=== PATIENT | male | born 1965 | race Caucasian/White ===

== ENCOUNTER 2017-01-04 15:02 | Inpatient (IN) | payer MEDICARE, OTHER ==
[~2017-01-04] VITALS: Ht 180.3 cm; Wt 190.0 kg
[2017-01-04 16:02] LABS: Basophils # (auto) 0 uL; Basophils % (auto) 0.4 % (0.0-2.0); Eosinophils # (auto) 0 uL; Eosinophils % (auto) 0.2 % (0.0-7.0); Hematocrit 39.8 % (41.0-53.0); Hemoglobin 12.8 g/dL (13.5-17.5); Lymphocytes # (auto) 2.5 uL; Mean Corpuscular Hemoglobin 32.2 pg (28.0-32.0); Mean Corpuscular Hgb Conc. 32.3 g/dL (32.0-36.0); Mean Corpuscular Volume 99.9 fL (80.0-100.0); Mean Platelet Volume 7.5 fL (7.4-10.4); Monocytes # (auto) 0.5 uL; Neutrophils # (auto) 3.8 uL; Neutrophils % (auto) 55.4 % (37.0-80.0); Platelet Count (auto) 174 10^3/uL (140-450); Red Cell Distribution Width 16.1 % (11.6-16.0); White Blood Cell 6.8 10^3/uL (4.4-10.8)
[2017-01-04 16:13] LABS: Albumin 2.5 g/dL (3.4-5.0); Bilirubin, Total 0.4 mg/dL (0.2-1.0); Potassium 4.3 mmol/L (3.5-5.1); Total Protein 6.5 g/dL (6.4-8.2)
[2017-01-04] MEDS ORDERED: CEFTRIAXONE SODIUM 2 GM in D5W 5% 50 ML IV ONE (18:30)
[2017-01-04] MEDS ORDERED: MORPHINE SULF INJ 2 MG/ML SYRINGE 1ML IV ONE (18:30)
[2017-01-04] MEDS ORDERED: PIPERACILLIN-TAZOB 3.375GM 100 ML IV ONE (18:45)
[2017-01-04] MEDS ORDERED: CLINDAMYCIN 600MG IV 50 ML IV ONE (18:45)
[2017-01-04] MEDS ORDERED: ALBUTEROL SULF 2.5 MG/0.5ML(0.5%) NEB SOLN NEB ONE (18:45)
[2017-01-04] MEDS ORDERED: MORPHINE SULFATE 4 MG/ML SYRG IV ONE (18:45)
[2017-01-04] MEDS ORDERED: ONDANSETRON HCL 4 MG/2 ML VIAL IV ONE (18:45)
[2017-01-04] MEDS ORDERED: IPRATROPIUM BROM 0.5 MG/2.5ML INH SOL NEB ONE (18:45)
[2017-01-04] MEDS ORDERED: ceFAZolin 1GM/50ML D5W 100 ML IV ONE (19:00)
[2017-01-04 20:57] LABS: B-Type Natriuretic Peptide 7.35 pg/mL (0-100)
[2017-01-04 20:58] LABS: Temperature: 23.5 C (20.0-25.0)
[2017-01-04] MEDS ORDERED: MORPHINE SULF INJ 2 MG/ML SYRINGE 1ML IV PRN (21:30)
[2017-01-04] MEDS ORDERED: ONDANSETRON HCL 4 MG/2 ML VIAL IV PRN (21:30)
[2017-01-04] MEDS ORDERED: TEMAZEPAM 15 MG CAP PO PRN (21:30)
[2017-01-04] MEDS ORDERED: NITROGLYCERIN 0.4 MG SL TAB SL PRN (21:30)
[2017-01-04] MEDS ORDERED: HYDROcodone-ACET 5/325MG TAB PO PRN (21:30)
[2017-01-04] MEDS ORDERED: FURO40TA4 PO (21:31)
[2017-01-04] MEDS ORDERED: DIVA500T7 PO (21:31)
[2017-01-04] MEDS ORDERED: TRAZ100T2 PO (21:31)
[2017-01-04] MEDS ORDERED: GABA300C8 PO (21:31)
[2017-01-04] MEDS ORDERED: OLAN10TA29 PO (21:31)
[2017-01-04] MEDS ORDERED: TOPI200T43 PO (21:31)
[2017-01-04] MEDS ORDERED: TRAZODONE PO SCH (22:00)
[2017-01-04] MEDS: SODIUM CHLOR 0.9% PF (SALINE LOCK) 10ML VIAL IV SCH (22:00)
[2017-01-04] MEDS ORDERED: TOPIRAMATE 200 MG PO SCH (22:00)
[2017-01-04] MEDS: GABAPENTIN 300 MG CAP PO SCH (22:13)
[2017-01-04] MEDS: CLINDAMYCIN 900MG IV 50 ML IV SCH (22:54)
[2017-01-05] VITALS (8 sets, daily range): BP systolic 104–127; BP diastolic 54–70
[2017-01-05] MEDS: MORPHINE SULF INJ 2 MG/ML SYRINGE 1ML IV PRN ×4 (02:00→20:26)
[2017-01-05] MEDS: CLINDAMYCIN 900MG IV 50 ML IV SCH ×3 (05:00→22:15)
[2017-01-05] MEDS: GABAPENTIN 300 MG CAP PO SCH ×3 (05:00→22:15)
[2017-01-05] MEDS: SODIUM CHLOR 0.9% PF (SALINE LOCK) 10ML VIAL IV SCH ×3 (05:00→22:15)
[2017-01-05 06:17] LABS: Basophils # (auto) 0.1 uL; Basophils % (auto) 1.5 % (0.0-2.0); Eosinophils # (auto) 0 uL; Eosinophils % (auto) 0.5 % (0.0-7.0); Hematocrit 38.2 % (41.0-53.0); Hemoglobin 12.5 g/dL (13.5-17.5); Lymphocytes # (auto) 2.3 uL; Lymphocytes % (auto) 43.1 % (10.0-50.0); Mean Corpuscular Hemoglobin 31.8 pg (28.0-32.0); Mean Corpuscular Hgb Conc. 32.8 g/dL (32.0-36.0); Mean Platelet Volume 7.8 fL (7.4-10.4); Monocytes # (auto) 0.4 uL; Monocytes % (auto) 7.7 % (0.0-12.0); Neutrophils # (auto) 2.5 uL; Neutrophils % (auto) 47.2 % (37.0-80.0); Platelet Count (auto) 298 10^3/uL (140-450); Red Cell Distribution Width 15.7 % (11.6-16.0); White Blood Cell 5.4 10^3/uL (4.4-10.8)
[2017-01-05 06:35] LABS: Albumin 2.7 g/dL (3.4-5.0); Bilirubin, Total 0.5 mg/dL (0.2-1.0); Calcium 8.3 mg/dL (8.5-10.1); Total Protein 6.3 g/dL (6.4-8.2)
[2017-01-05] MEDS: OLANZapine 5 MG TAB PO SCH (09:48)
[2017-01-05] MEDS: TOPIRAMATE 100 MG TAB PO SCH ×2 (09:49→22:15)
[2017-01-05] MEDS ORDERED: PATIENTS OWN MEDICATION (Olanzapine 10 MG) PO SCH (10:00)
[2017-01-05] MEDS ORDERED: FUROSEMIDE 40 MG TAB PO SCH (10:00)
[2017-01-05] MEDS ORDERED: DIVALPROEX SODIUM 500 MG PO SCH (10:00)
[2017-01-05] MEDS ORDERED: POTASSIUM CHL 20 Meq TABLET PO ONE (12:30)
[2017-01-05] MEDS ORDERED: FUROSEMIDE 40 MG/4 ML VIAL IV ONE (12:30)
[2017-01-05 15:50] LABS: Urine RBC None Seen /hpf (0 - 3)
[2017-01-05 16:19] LABS: Urine Bilirubin Negative (Negative); Urine Blood Negative /uL (Negative); Urine Glucose Normal (Normal); Urine Ketone Negative (Negative); Urine Nitrite Negative (Negative); Urine Urobilinogen Normal (Negative)
[2017-01-05 16:22] LABS: Urine Color Straw (Yellow)
[2017-01-05] MEDS: ALBUTEROL SULF 2.5 MG/0.5ML(0.5%) NEB SOLN NEB SCH (18:39)
[2017-01-05] MEDS: IPRATROPIUM BROM 0.5 MG/2.5ML INH SOL NEB SCH (18:39)
[2017-01-05] MEDS: traZODone HCL 50 MG TAB PO SCH (22:15)
[2017-01-06] MEDS: ALBUTEROL SULF 2.5 MG/0.5ML(0.5%) NEB SOLN NEB SCH ×4 (01:10→18:00)
[2017-01-06] MEDS: IPRATROPIUM BROM 0.5 MG/2.5ML INH SOL NEB SCH ×4 (01:10→18:00)
[2017-01-06 05:12] VITALS: BP 119/51
[2017-01-06] MEDS: MORPHINE SULF INJ 2 MG/ML SYRINGE 1ML IV PRN ×5 (05:21→22:00)
[2017-01-06] MEDS: GABAPENTIN 300 MG CAP PO SCH ×3 (05:21→21:59)
[2017-01-06] MEDS: SODIUM CHLOR 0.9% PF (SALINE LOCK) 10ML VIAL IV SCH ×3 (05:21→21:59)
[2017-01-06] MEDS: CLINDAMYCIN 900MG IV 50 ML IV SCH ×3 (05:21→21:59)
[2017-01-06 06:06] LABS: Basophils # (auto) 0.1 uL; Basophils % (auto) 1.2 % (0.0-2.0); Eosinophils # (auto) 0 uL; Eosinophils % (auto) 0.6 % (0.0-7.0); Hematocrit 40.2 % (41.0-53.0); Hemoglobin 13.1 g/dL (13.5-17.5); Lymphocytes # (auto) 2.4 uL; Lymphocytes % (auto) 40.7 % (10.0-50.0); Mean Corpuscular Hemoglobin 31.8 pg (28.0-32.0); Mean Corpuscular Hgb Conc. 32.7 g/dL (32.0-36.0); Mean Corpuscular Volume 97.1 fL (80.0-100.0); Mean Platelet Volume 7.6 fL (7.4-10.4); Monocytes # (auto) 0.4 uL; Monocytes % (auto) 7.1 % (0.0-12.0); Neutrophils # (auto) 2.9 uL; Neutrophils % (auto) 50.4 % (37.0-80.0); Platelet Count (auto) 289 10^3/uL (140-450); Red Cell Distribution Width 15.3 % (11.6-16.0); White Blood Cell 5.8 10^3/uL (4.4-10.8)
[2017-01-06 06:23] LABS: Calcium 8.3 mg/dL (8.5-10.1)
[2017-01-06 06:25] LABS: BUN/Creatinine Ratio 16.8
[2017-01-06 08:00] VITALS: BP 127/73
[2017-01-06 09:00] VITALS: BP 127/73
[2017-01-06] MEDS: FUROSEMIDE 40 MG/4 ML VIAL IV SCH (09:55)
[2017-01-06] MEDS: TOPIRAMATE 100 MG TAB PO SCH ×2 (09:56→21:59)
[2017-01-06] MEDS: POTASSIUM CHL 20 Meq TABLET PO SCH (09:56)
[2017-01-06] MEDS: OLANZapine 5 MG TAB PO SCH (09:57)
[2017-01-06 13:00] VITALS: BP 130/65
[2017-01-06] MEDS ORDERED: FUROSEMIDE 40 MG/4 ML VIAL IV ONE (13:45)
[2017-01-06] MEDS ORDERED: POTASSIUM CHL 20 Meq TABLET PO ONE (13:45)
[2017-01-06 17:30] VITALS: BP 110/62
[2017-01-06] MEDS ORDERED: LEVOFLOXACIN 500MG 100 ML IV ONE (19:45)
[2017-01-06 21:30] VITALS: BP 121/78
[2017-01-06] MEDS: traZODone HCL 50 MG TAB PO SCH (21:59)
[2017-01-07] MEDS: MORPHINE SULF INJ 2 MG/ML SYRINGE 1ML IV PRN ×5 (02:19→20:04)
[2017-01-07 05:27] VITALS: BP 120/65
[2017-01-07] MEDS: GABAPENTIN 300 MG CAP PO SCH ×3 (05:49→21:33)
[2017-01-07] MEDS: SODIUM CHLOR 0.9% PF (SALINE LOCK) 10ML VIAL IV SCH ×3 (05:49→21:35)
[2017-01-07] MEDS: CLINDAMYCIN 900MG IV 50 ML IV SCH ×3 (05:49→21:33)
[2017-01-07] MEDS: ALBUTEROL SULF 2.5 MG/0.5ML(0.5%) NEB SOLN NEB SCH ×4 (06:00→18:37)
[2017-01-07] MEDS: IPRATROPIUM BROM 0.5 MG/2.5ML INH SOL NEB SCH ×4 (06:00→18:37)
[2017-01-07 06:08] LABS: BUN/Creatinine Ratio 18.2; Calcium 8.3 mg/dL (8.5-10.1); Potassium 3.6 mmol/L (3.5-5.1)
[2017-01-07 08:00] VITALS: BP 121/68
[2017-01-07 09:00] VITALS: BP 121/68
[2017-01-07] MEDS ORDERED: LEVOFLOXACIN 500MG 100 ML IV SCH (10:00)
[2017-01-07] MEDS: OLANZapine 5 MG TAB PO SCH (10:11)
[2017-01-07] MEDS: POTASSIUM CHL 20 Meq TABLET PO SCH (10:11)
[2017-01-07] MEDS: TOPIRAMATE 100 MG TAB PO SCH ×2 (10:12→21:33)
[2017-01-07] MEDS: FUROSEMIDE 40 MG/4 ML VIAL IV SCH (10:12)
[2017-01-07] MEDS ORDERED: POTASSIUM CHL 20 Meq TABLET PO ONE (12:00)
[2017-01-07] MEDS ORDERED: FUROSEMIDE 40 MG/4 ML VIAL IV ONE (12:00)
[2017-01-07 13:00] VITALS: BP 121/74
[2017-01-07 16:26] VITALS: BP 112/68
[2017-01-07] MEDS: traZODone HCL 50 MG TAB PO SCH (21:33)
[2017-01-07 21:41] VITALS: BP 96/60
[2017-01-08] MEDS: MORPHINE SULF INJ 2 MG/ML SYRINGE 1ML IV PRN ×3 (00:20→08:37)
[2017-01-08 04:47] VITALS: BP 107/65
[2017-01-08] MEDS: CLINDAMYCIN 900MG IV 50 ML IV SCH (05:32)
[2017-01-08] MEDS: SODIUM CHLOR 0.9% PF (SALINE LOCK) 10ML VIAL IV SCH (05:32)
[2017-01-08] MEDS: GABAPENTIN 300 MG CAP PO SCH (05:32)
[2017-01-08] MEDS: IPRATROPIUM BROM 0.5 MG/2.5ML INH SOL NEB SCH (06:50)
[2017-01-08] MEDS: ALBUTEROL SULF 2.5 MG/0.5ML(0.5%) NEB SOLN NEB SCH (06:50)
[2017-01-08 08:00] VITALS: BP 100/46
[2017-01-08 09:00] VITALS: BP 100/46
[2017-01-08] MEDS: TOPIRAMATE 100 MG TAB PO SCH (10:06)
[2017-01-08] MEDS: OLANZapine 5 MG TAB PO SCH (10:06)
[2017-01-08] MEDS: POTASSIUM CHL 20 Meq TABLET PO SCH (10:06)
[2017-01-08] MEDS: FUROSEMIDE 40 MG/4 ML VIAL IV SCH (10:07)
[2017-01-08 10:14] VITALS: BP 107/65
== END 2017-01-08 14:34 | disposition home or self-care (01) | DRG 291 ==
LOC: ER 15:18 → TELE 15:19 → TELE-WESTW 01-05 01:13
PROVIDERS: ADMIT Emergency Medicine; ATTEND Internal Medicine
DX: I13.0 Hypertensive heart and chronic kidney disease with heart failure and stage 1 through stage 4 chronic kidney disease, or unspecified chronic kidney disease (principal); I50.33 Acute on chronic diastolic (congestive) heart failure; L03.116 Cellulitis of left lower limb; Z68.43 Body mass index [BMI] 50.0-59.9, adult; L03.115 Cellulitis of right lower limb; I11.0 Hypertensive heart disease with heart failure; J44.9 Chronic obstructive pulmonary disease, unspecified; E66.01 Morbid (severe) obesity due to excess calories; F20.9 Schizophrenia, unspecified; N18.9 Chronic kidney disease, unspecified; F17.210 Nicotine dependence, cigarettes, uncomplicated; E03.9 Hypothyroidism, unspecified; G47.30 Sleep apnea, unspecified; Z88.0 Allergy status to penicillin
CPT/HCPCS: 36415; 71010; 73590; 80048; 80053; 81001; 83880; 85025; 87040; 87077; 87186; 93306; 93970; 94640; 94761; 96365; 96375; J0690; J0696; J1956; J2405; J3490; J7060

== ENCOUNTER 2017-04-27 10:20 | Inpatient (IN) | payer MEDICARE, MEDICAID ==
[~2017-04-27] VITALS: Ht 172.7 cm; Wt 174.9 kg
[~2017-04-27 10:20] MED LIST: DIVA500T7 PO; FURO40TA4 PO; GABA-497 PO; LORA1TAB12 PO; MORP30TA PO; NITR0.4S29 SL; PERCOT PO; POTA10TA34 PO; TOPI200T43 PO
[2017-04-27] MEDS ORDERED: FLUMAZENIL 0.1 MG/ML INJ 10ML MDV IV ONE (10:45)
[2017-04-27] MEDS ORDERED: ACTIVATED CHARCOAL 50 GM/240 ML SOL PO ONE (11:00)
[2017-04-27] MEDS ORDERED: NALOXONE HCL 0.4 MG/ML VIAL IM ONE (11:00)
[2017-04-27 11:45] LABS: Basophils # (auto) 0 uL; Basophils % (auto) 0.2 % (0.0-2.0); CONDITION Y; Eosinophils # (auto) 0 uL; Eosinophils % (auto) 0.2 % (0.0-7.0); Hematocrit 47.7 % (41.0-53.0); Hemoglobin 16.3 g/dL (13.5-17.5); Lymphocytes % (auto) 9.8 % (10.0-50.0); Mean Corpuscular Hemoglobin 33.5 pg (28.0-32.0); Mean Corpuscular Volume 98.3 fL (80.0-100.0); Mean Platelet Volume 8.2 fL (7.4-10.4); Monocytes # (auto) 0.5 uL; Monocytes % (auto) 4.9 % (0.0-12.0); Neutrophils # (auto) 8.5 uL; Neutrophils % (auto) 84.9 % (37.0-80.0); Platelet Count (auto) 246 10^3/uL (140-450); Red Cell Distribution Width 15.1 % (11.6-16.0); White Blood Cell 10.1 10^3/uL (4.4-10.8)
[2017-04-27 12:03] LABS: INR 0.93 (0.9-1.15); Partial Thromboplastin Time 24.7 sec (22.64-33.71); Prothrombin Time 10.1 sec (9.37-12.3)
[2017-04-27 12:15] LABS: Albumin 3.2 g/dL (3.4-5.0); Alkaline Phosphatase 88 U/L (45-117); Anion Gap 7 (5-15); Aspartate Aminotransferase 33 U/L (15-37); BUN/Creatinine Ratio 5.3; Bilirubin, Total 0.4 mg/dL (0.2-1.0); Blood Urea Nitrogen 7 mg/dL (7-18); Calcium 8.6 mg/dL (8.5-10.1); Carbon Dioxide 26 mmol/L (21-32); Chloride 108 mmol/L (98-107); GFR African American 74 mL/min; GFR Non-African American 61 mL/min; Glucose 89 mg/dL (74-106); Magnesium 2.3 mg/dL (1.6-2.6); Potassium 3.2 mmol/L (3.5-5.1); Sodium 141 mmol/L (136-145); Total Protein 7.2 g/dL (6.4-8.2)
[2017-04-27 12:16] LABS: Lactic Acid w/Reflex 3.1 mmol/L (0.4-2.0)
[2017-04-27 12:36] LABS: B-Type Natriuretic Peptide 44.1 pg/mL (0-100)
[2017-04-27 12:37] LABS: REFLEX LACTIC ACID YES OR NO YES
[2017-04-27] MEDS ORDERED: LACTULOSE 20Gm/30ML SOLN PO PRN (12:45)
[2017-04-27] MEDS ORDERED: NITROGLYCERIN 0.4 MG SL TAB SL PRN (12:45)
[2017-04-27] MEDS ORDERED: FUROSEMIDE 40 MG/4 ML VIAL IV ONE (12:45)
[2017-04-27] MEDS ORDERED: ALBUTEROL SULF 2.5 MG/0.5ML(0.5%) NEB SOLN NEB PRN (12:45)
[2017-04-27] MEDS ORDERED: POTASSIUM CHL 20MEQ/100ML 100 ML IV ONE (12:45)
[2017-04-27] MEDS ORDERED: ONDANSETRON HCL 4 MG/2 ML VIAL IV PRN (12:45)
[2017-04-27] MEDS ORDERED: MORPHINE SULF INJ 2 MG/ML SYRINGE 1ML IV PRN (12:45)
[2017-04-27 12:47] LABS: Urine RBC None Seen /hpf (0 - 3)
[2017-04-27 12:53] LABS: Urine Bilirubin Negative (Negative); Urine Blood Negative /uL (Negative); Urine Color Yellow (Yellow); Urine Glucose Normal (Normal); Urine Ketone Negative (Negative); Urine Nitrite Negative (Negative); Urine Squamous Epithelial Cell FEW /hpf (<5); Urine Urobilinogen Normal (Negative)
[2017-04-27] MEDS ORDERED: POTASSIUM CHL 20 Meq TABLET PO SCH (13:00)
[2017-04-27] MEDS: AZITHROMYCIN 500MG/D5W 250ML 250 ML IV SCH (13:02)
[2017-04-27 13:04] LABS: Temperature: 22.4 C (20.0-25.0)
[2017-04-27] MEDS ORDERED: LORazepam 0.5 MG TAB PO PRN (13:15)
[2017-04-27] MEDS: GABAPENTIN 300 MG CAP PO SCH ×2 (14:12→22:30)
[2017-04-27] MEDS ORDERED: IOHEXOL 350 MG/ML 100ML IJ ONE (15:20)
[2017-04-27] MEDS: IPRATROPIUM BROM 0.5 MG/2.5ML INH SOL NEB SCH (18:44)
[2017-04-27] MEDS: ALBUTEROL SULF 2.5 MG/0.5ML(0.5%) NEB SOLN NEB SCH (18:44)
[2017-04-27 19:00] VITALS: BP 89/60
[2017-04-27 21:30] VITALS: BP 88/58
[2017-04-27 23:18] VITALS: BP 81/54
[2017-04-28] MEDS: ALBUTEROL SULF 2.5 MG/0.5ML(0.5%) NEB SOLN NEB SCH ×4 (00:58→18:00)
[2017-04-28] MEDS: IPRATROPIUM BROM 0.5 MG/2.5ML INH SOL NEB SCH ×4 (00:58→18:00)
[2017-04-28 05:00] VITALS: BP 107/66
[2017-04-28] MEDS: GABAPENTIN 300 MG CAP PO SCH ×3 (06:02→22:37)
[2017-04-28 08:57] LABS: Basophils # (auto) 0.2 uL; Basophils % (auto) 2.1 % (0.0-2.0); CONDITION Y; Eosinophils # (auto) 0.1 uL; Hematocrit 42.3 % (41.0-53.0); Hemoglobin 14.1 g/dL (13.5-17.5); Lymphocytes # (auto) 1.9 uL; Lymphocytes % (auto) 25.1 % (10.0-50.0); Mean Corpuscular Hemoglobin 32.8 pg (28.0-32.0); Mean Corpuscular Hgb Conc. 33.4 g/dL (32.0-36.0); Mean Corpuscular Volume 98.2 fL (80.0-100.0); Mean Platelet Volume 8.4 fL (7.4-10.4); Monocytes # (auto) 0.6 uL; Monocytes % (auto) 7.9 % (0.0-12.0); Neutrophils # (auto) 4.9 uL; Neutrophils % (auto) 63.9 % (37.0-80.0); Platelet Count (auto) 241 10^3/uL (140-450); Red Cell Distribution Width 15.2 % (11.6-16.0); White Blood Cell 7.7 10^3/uL (4.4-10.8)
[2017-04-28 08:58] VITALS: BP 110/70
[2017-04-28 09:21] LABS: Salicylate 3.7 mg/dL (2.8-20.0)
[2017-04-28 09:27] LABS: Acetaminophen < 2.0 ug/mL (10-30)
[2017-04-28 09:30] LABS: BUN/Creatinine Ratio 9.7; Calcium 8.2 mg/dL (8.5-10.1); Potassium 4.1 mmol/L (3.5-5.1)
[2017-04-28] MEDS: AZITHROMYCIN 500MG/D5W 250ML 250 ML IV SCH ×2 (10:00→11:51)
[2017-04-28] MEDS ORDERED: FUROSEMIDE 40 MG/4 ML VIAL IV SCH (10:00)
[2017-04-28 13:00] VITALS: BP 115/89
[2017-04-28 17:00] VITALS: BP 113/73
[2017-04-28 22:58] LABS: Albumin 2.8 g/dL (3.4-5.0); Alkaline Phosphatase 77 U/L (45-117); Aspartate Aminotransferase 26 U/L (15-37); Bilirubin, Direct < 0.1 mg/dL (0-0.2); Bilirubin, Total 0.4 mg/dL (0.2-1.0); Total Protein 6.3 g/dL (6.4-8.2)
[2017-04-29] MEDS: ALBUTEROL SULF 2.5 MG/0.5ML(0.5%) NEB SOLN NEB SCH ×4 (00:17→19:55)
[2017-04-29] MEDS: IPRATROPIUM BROM 0.5 MG/2.5ML INH SOL NEB SCH ×4 (00:17→19:55)
[2017-04-29 05:16] VITALS: BP 129/69
[2017-04-29] MEDS: GABAPENTIN 300 MG CAP PO SCH ×3 (06:17→22:27)
[2017-04-29 17:00] VITALS: BP 107/66
[2017-04-30] MEDS: ALBUTEROL SULF 2.5 MG/0.5ML(0.5%) NEB SOLN NEB SCH ×3 (00:57→11:41)
[2017-04-30] MEDS: IPRATROPIUM BROM 0.5 MG/2.5ML INH SOL NEB SCH ×3 (00:57→11:40)
[2017-04-30 05:03] VITALS: BP 132/69
[2017-04-30] MEDS ORDERED: MORPHINE SULF INJ 2 MG/ML SYRINGE 1ML IV ONE (05:15)
[2017-04-30] MEDS: GABAPENTIN 300 MG CAP PO SCH (06:38)
[2017-04-30 09:00] VITALS: BP 134/75
[2017-04-30] MEDS: AZITHROMYCIN 500MG/D5W 250ML 250 ML IV SCH (10:10)
[2017-04-30 13:08] VITALS: BP 136/68
[2017-04-30] MEDS ORDERED: DIVA500T59 PO (18:38)
[2017-04-30] MEDS ORDERED: [UNRECOGNIZED DRUG - CODE] PO (18:38)
[2017-04-30] MEDS ORDERED: FURO40TA4 PO (18:38)
[2017-04-30] MEDS ORDERED: ALBU0.084 NEB (18:38)
[2017-04-30] MEDS ORDERED: IPRASOL39 NEB (18:38)
[2017-04-30] MEDS ORDERED: HYDR-531 PO (18:38)
[2017-04-30] MEDS ORDERED: POTA8TAB2 PO (18:38)
[2017-04-30] MEDS ORDERED: OLAN10TA29 PO (18:38)
[2017-04-30] MEDS ORDERED: TRAZ100T2 PO (18:38)
[2017-04-30] MEDS ORDERED: GABA-497 PO (18:38)
[2017-04-30] MEDS ORDERED: TOPI100T68 PO (18:38)
== END 2017-04-30 14:50 | disposition psychiatric hospital, planned readmission (93) | DRG 917 ==
LOC: EDBD 10:20 → ER 10:20 → TELE 10:21 → TELE-WESTW 18:58
PROVIDERS: ADMIT Nurse Practitioner Family; ATTEND Internal Medicine Pulmonary Disease
DX: T40.2X2A Poisoning by other opioids, intentional self-harm, initial encounter (principal); I50.33 Acute on chronic diastolic (congestive) heart failure; F33.9 Major depressive disorder, recurrent, unspecified; I13.0 Hypertensive heart and chronic kidney disease with heart failure and stage 1 through stage 4 chronic kidney disease, or unspecified chronic kidney disease; E87.2 Acidosis; Z68.43 Body mass index [BMI] 50.0-59.9, adult; E87.6 Hypokalemia; E03.9 Hypothyroidism, unspecified; E66.01 Morbid (severe) obesity due to excess calories; E78.5 Hyperlipidemia, unspecified; F17.210 Nicotine dependence, cigarettes, uncomplicated; F20.9 Schizophrenia, unspecified; I25.10 Atherosclerotic heart disease of native coronary artery without angina pectoris; N18.9 Chronic kidney disease, unspecified; J44.9 Chronic obstructive pulmonary disease, unspecified; Z79.899 Other long term (current) drug therapy; Z86.73 Personal history of transient ischemic attack (TIA), and cerebral infarction without residual deficits; Z87.442 Personal history of urinary calculi; I25.2 Old myocardial infarction; Y92.89 Other specified places as the place of occurrence of the external cause; Z95.5 Presence of coronary angioplasty implant and graft; Z88.6 Allergy status to analgesic agent; Z88.0 Allergy status to penicillin; Z88.8 Allergy status to other drugs, medicaments and biological substances
CPT/HCPCS: 36415; 51702; 70450; 71010; 71275; 80048; 80053; 80076; 80164; 80307; 80320; 80329; 81001; 82962; 83605; 83735; 83880; 84484; 85025; 85379; 85610; 85730; 87040; 93005; 94640; 94761; 96361; 96374; 96375; J3480

== ENCOUNTER 2017-06-14 12:24 | Inpatient (IN) | payer MEDICARE, MEDICAID ==
[~2017-06-14] VITALS: Ht 193 cm; Wt 157.0 kg
[~2017-06-14 12:24] MED LIST changes: +ALBU0.084 NEB; +DIVA500T59 PO; +HYDR-531 PO; +IPRASOL39 NEB; +OLAN10TA29 PO; +POTA8TAB2 PO; +TOPI100T68 PO; +TRAZ100T2 PO; +[UNRECOGNIZED DRUG - CODE] PO
[2017-06-14 13:31] LABS: Basophils # (auto) 0 uL; Basophils % (auto) 0.7 % (0.0-2.0); Eosinophils # (auto) 0 uL; Eosinophils % (auto) 0.6 % (0.0-7.0); Hematocrit 45.4 % (41.0-53.0); Hemoglobin 15.2 g/dL (13.5-17.5); Lymphocytes # (auto) 2.1 uL; Lymphocytes % (auto) 35.3 % (10.0-50.0); Mean Corpuscular Hemoglobin 33.8 pg (28.0-32.0); Mean Corpuscular Hgb Conc. 33.4 g/dL (32.0-36.0); Mean Corpuscular Volume 101.3 fL (80.0-100.0); Mean Platelet Volume 7.5 fL (6.9-10.8); Monocytes # (auto) 0.4 uL; Monocytes % (auto) 6.4 % (0.0-12.0); Neutrophils # (auto) 3.4 uL; Nucleated Red Blood Cells % 0.1 %; Platelet Count (auto) 243 10^3/uL (140-450); Red Cell Distribution Width 14.4 % (11.8-14.3); White Blood Cell 5.9 10^3/uL (4.4-10.8)
[2017-06-14 13:42] LABS: Urine Bilirubin Negative (Negative); Urine Blood Negative /uL (Negative); Urine Color Yellow (Yellow); Urine Glucose Normal (Normal); Urine Ketone Negative (Negative); Urine Nitrite Negative (Negative); Urine RBC <1 /hpf (0 - 3); Urine Squamous Epithelial Cell FEW /hpf (<5); Urine Urobilinogen Normal (Negative); Urine pH 8.5 (5.0-8.0)
[2017-06-14 13:58] LABS: Albumin 3.4 g/dL (3.4-5.0); Anion Gap 6 (5-15); Aspartate Aminotransferase 36 U/L (15-37); BUN/Creatinine Ratio 6.9; Blood Urea Nitrogen 7 mg/dL (7-18); Calcium 8.6 mg/dL (8.5-10.1); Carbon Dioxide 26 mmol/L (21-32); Chloride 111 mmol/L (98-107); GFR African American 98 mL/min; GFR Non-African American 81 mL/min; Glucose 71 mg/dL (74-106); Magnesium 2.4 mg/dL (1.6-2.6); Sodium 143 mmol/L (136-145)
[2017-06-14 14:02] LABS: Alkaline Phosphatase 99 U/L (45-117); Bilirubin, Total 0.7 mg/dL (0.2-1.0); Total Protein 7.1 g/dL (6.4-8.2)
[2017-06-14] MEDS ORDERED: SODIUM CHLORIDE 0.9% 1,000 ML IV ONE (14:35)
[2017-06-14] MEDS ORDERED: ONDANSETRON HCL 4 MG/2 ML VIAL IV ONE (14:45)
[2017-06-14] MEDS ORDERED: MORPHINE SULF INJ 2 MG/ML SYRINGE 1ML IV ONE (14:45)
[2017-06-14 15:29] LABS: B-Type Natriuretic Peptide 76.7 pg/mL (0-100); Temperature: 23.5 C (20.0-25.0)
[2017-06-14 16:02] LABS: INR 0.98 (0.9-1.15); Partial Thromboplastin Time 27.7 sec (22.64-33.71); Prothrombin Time 10.7 sec (9.37-12.3)
[2017-06-14] MEDS ORDERED: IOHEXOL 350 MG/ML 100ML IJ ONE ×2 (17:06→17:47)
[2017-06-14] MEDS ORDERED: LACTULOSE 20Gm/30ML SOLN PO PRN (18:45)
[2017-06-14] MEDS ORDERED: DEXTROSE (50%) 50ML SYRG IV PRN (18:45)
[2017-06-14] MEDS ORDERED: NITROGLYCERIN 0.4 MG SL TAB SL PRN (18:45)
[2017-06-14] MEDS ORDERED: ZOLPIDEM TARTRATE 5 MG TAB PO PRN (18:45)
[2017-06-14] MEDS ORDERED: ACETAMINOPHEN 500 MG TAB PO PRN (18:45)
[2017-06-14] MEDS ORDERED: LORazepam 0.5 MG TAB PO PRN (18:45)
[2017-06-14] MEDS ORDERED: MORPHINE SULF INJ 2 MG/ML SYRINGE 1ML IV PRN (18:45)
[2017-06-14] MEDS ORDERED: PROMETHAZINE HCL 25 MG/ML 1ML IV PRN (18:45)
[2017-06-14] MEDS ORDERED: ALBUTEROL SULF 2.5 MG/0.5ML(0.5%) NEB SOLN NEB PRN (18:45)
[2017-06-14] MEDS ORDERED: ENOXAPARIN SOD 40 MG/0.4 ML SYRINGE SC SCH (19:05)
[2017-06-14] MEDS: NITROGLYCERIN 0.2MG/HR TOPICAL PATCH TD SCH (19:11)
[2017-06-14 20:20] VITALS: BP 104/62
[2017-06-14] MEDS: DOXYCYCLINE HYC 100MG/250ML 250 ML IV SCH (21:19)
[2017-06-14 22:00] VITALS: BP 124/80
[2017-06-14] MEDS: QUEtiapine FUMARATE 25 MG TAB PO SCH (22:00)
[2017-06-14] MEDS ORDERED: TOPIRAMATE 200 MG PO SCH (22:00)
[2017-06-14] MEDS: METOPROLOL TARTRATE 25 MG TAB PO SCH (22:01)
[2017-06-14] MEDS: ATORVASTATIN 20 MG TAB PO SCH (22:02)
[2017-06-14] MEDS: TOPIRAMATE 100 MG TAB PO SCH (22:02)
[2017-06-14] MEDS: GABAPENTIN 300 MG CAP PO SCH (22:02)
[2017-06-14] MEDS: traZODone HCL 50 MG TAB PO SCH (22:03)
[2017-06-14] MEDS: MORPHINE SULF 30 mg ER tab PO SCH (22:03)
[2017-06-14] MEDS: OXYCODONE W/ ACETAMINOPHEN 5/325MG TABLET PO SCH (22:03)
[2017-06-14] MEDS: SODIUM CHLOR 0.9% PF (SALINE LOCK) 10ML VIAL IV SCH (22:04)
[2017-06-14] MEDS: ACCU-CHEK COMFORT CURVE STRIP VI SCH (22:23)
[2017-06-14] MEDS: InsuLIN REG 1unit/0.01ml Soln (100units/ml) SC SCH (22:24)
[2017-06-15] VITALS (7 sets, daily range): BP systolic 90–129; BP diastolic 56–72
[2017-06-15] MEDS: IPRATROPIUM BROM 0.5 MG/2.5ML INH SOL NEB SCH ×4 (00:42→19:16)
[2017-06-15] MEDS: ALBUTEROL SULF 2.5 MG/0.5ML(0.5%) NEB SOLN NEB SCH ×4 (00:43→19:16)
[2017-06-15] MEDS: MORPHINE SULF INJ 2 MG/ML SYRINGE 1ML IV PRN ×5 (01:16→18:59)
[2017-06-15] MEDS ORDERED: PATIENTS OWN MEDICATION (Albuterol Sulfate 1 VIAL) NEB SCH (02:00)
[2017-06-15] MEDS: GABAPENTIN 300 MG CAP PO SCH ×3 (06:58→21:40)
[2017-06-15] MEDS: ACCU-CHEK COMFORT CURVE STRIP VI SCH ×4 (06:59→21:45)
[2017-06-15] MEDS: SODIUM CHLOR 0.9% PF (SALINE LOCK) 10ML VIAL IV SCH ×3 (06:59→21:41)
[2017-06-15] MEDS: InsuLIN REG 1unit/0.01ml Soln (100units/ml) SC SCH ×4 (06:59→21:45)
[2017-06-15 07:15] LABS: Basophils # (auto) 0.1 uL; Basophils % (auto) 1.1 % (0.0-2.0); Eosinophils # (auto) 0.1 uL; Eosinophils % (auto) 0.9 % (0.0-7.0); Hematocrit 40.8 % (41.0-53.0); Lymphocytes # (auto) 2.8 uL; Lymphocytes % (auto) 34.1 % (10.0-50.0); Mean Corpuscular Hemoglobin 34.2 pg (28.0-32.0); Mean Corpuscular Hgb Conc. 34.3 g/dL (32.0-36.0); Mean Corpuscular Volume 99.6 fL (80.0-100.0); Mean Platelet Volume 7.6 fL (6.9-10.8); Monocytes # (auto) 0.6 uL; Monocytes % (auto) 7.6 % (0.0-12.0); Neutrophils # (auto) 4.6 uL; Neutrophils % (auto) 56.3 % (37.0-80.0); Nucleated Red Blood Cells % 0.2 %; Platelet Count (auto) 212 10^3/uL (140-450); Red Cell Distribution Width 14.4 % (11.8-14.3); White Blood Cell 8.1 10^3/uL (4.4-10.8)
[2017-06-15 07:20] LABS: Albumin 2.8 g/dL (3.4-5.0); Alkaline Phosphatase 100 U/L (45-117); Anion Gap 9 (5-15); Aspartate Aminotransferase 73 U/L (15-37); BUN/Creatinine Ratio 9.2; Bilirubin, Total 0.9 mg/dL (0.2-1.0); Blood Urea Nitrogen 9 mg/dL (7-18); Calcium 7.8 mg/dL (8.5-10.1); Carbon Dioxide 24 mmol/L (21-32); Chloride 109 mmol/L (98-107); Cholesterol 154 mg/dL (< 200); GFR African American 103 mL/min; GFR Non-African American 85 mL/min; Glucose 90 mg/dL (74-106); HDL Cholesterol 28 mg/dL (40-59); LDL Cholesterol 122 mg/dL (< 100); Sodium 142 mmol/L (136-145); Total Protein 6.1 g/dL (6.4-8.2); Triglycerides 111 mg/dL (< 150)
[2017-06-15] MEDS: DOXYCYCLINE HYC 100MG/250ML 250 ML IV SCH ×2 (08:09→19:56)
[2017-06-15] MEDS ORDERED: POTASSIUM CHL 10 Meq TABLET PO SCH (10:00)
[2017-06-15] MEDS: FUROSEMIDE 40 MG TAB PO SCH ×2 (10:00→18:00)
[2017-06-15] MEDS: METOPROLOL TARTRATE 25 MG TAB PO SCH ×2 (10:00→21:41)
[2017-06-15] MEDS ORDERED: FUROSEMIDE 40 MG TAB PO SCH (10:00)
[2017-06-15] MEDS: TOPIRAMATE 100 MG TAB PO SCH ×2 (10:00→21:39)
[2017-06-15] MEDS: POTASSIUM CHL 10 Meq TABLET PO SCH ×2 (10:24→21:39)
[2017-06-15] MEDS: MORPHINE SULF 30 mg ER tab PO SCH ×2 (10:24→21:41)
[2017-06-15] MEDS: OLANZapine 5 MG TAB PO SCH (10:25)
[2017-06-15] MEDS: OXYCODONE W/ ACETAMINOPHEN 5/325MG TABLET PO SCH ×2 (10:26→21:40)
[2017-06-15] MEDS: Boost Glucose Control 8 Ounces PO SCH ×2 (12:00→18:00)
[2017-06-15] MEDS: NITROGLYCERIN 0.2MG/HR TOPICAL PATCH TD SCH (18:00)
[2017-06-15] MEDS: QUEtiapine FUMARATE 25 MG TAB PO SCH (21:40)
[2017-06-15] MEDS: traZODone HCL 50 MG TAB PO SCH (21:40)
[2017-06-15] MEDS: ATORVASTATIN 20 MG TAB PO SCH (21:40)
[2017-06-16] VITALS (7 sets, daily range): BP systolic 97–117; BP diastolic 59–69
[2017-06-16] MEDS: MORPHINE SULF INJ 2 MG/ML SYRINGE 1ML IV PRN ×6 (00:55→22:58)
[2017-06-16] MEDS: IPRATROPIUM BROM 0.5 MG/2.5ML INH SOL NEB SCH ×4 (04:54→19:00)
[2017-06-16] MEDS: ALBUTEROL SULF 2.5 MG/0.5ML(0.5%) NEB SOLN NEB SCH ×4 (04:54→19:00)
[2017-06-16] MEDS: SODIUM CHLOR 0.9% PF (SALINE LOCK) 10ML VIAL IV SCH ×3 (05:20→21:48)
[2017-06-16] MEDS: GABAPENTIN 300 MG CAP PO SCH ×3 (05:20→21:46)
[2017-06-16] MEDS: ACCU-CHEK COMFORT CURVE STRIP VI SCH ×4 (06:37→22:38)
[2017-06-16] MEDS: InsuLIN REG 1unit/0.01ml Soln (100units/ml) SC SCH ×4 (06:37→22:00)
[2017-06-16 06:43] LABS: Basophils # (auto) 0.1 uL; Basophils % (auto) 0.8 % (0.0-2.0); Eosinophils # (auto) 0.1 uL; Eosinophils % (auto) 1.3 % (0.0-7.0); Hematocrit 43.5 % (41.0-53.0); Hemoglobin 14.5 g/dL (13.5-17.5); Lymphocytes # (auto) 2.7 uL; Mean Corpuscular Hemoglobin 34.1 pg (28.0-32.0); Mean Corpuscular Hgb Conc. 33.3 g/dL (32.0-36.0); Mean Corpuscular Volume 102.6 fL (80.0-100.0); Mean Platelet Volume 7.2 fL (6.9-10.8); Monocytes # (auto) 0.4 uL; Monocytes % (auto) 6.7 % (0.0-12.0); Neutrophils % (auto) 48.2 % (37.0-80.0); Nucleated Red Blood Cells % 0.2 %; Platelet Count (auto) 244 10^3/uL (140-450); White Blood Cell 6.3 10^3/uL (4.4-10.8)
[2017-06-16 07:10] LABS: Albumin 3.3 g/dL (3.4-5.0); Anion Gap 8 (5-15); Blood Urea Nitrogen 17 mg/dL (7-18); Calcium 8.4 mg/dL (8.5-10.1); Carbon Dioxide 25 mmol/L (21-32); Chloride 106 mmol/L (98-107); Glucose 70 mg/dL (74-106); Potassium 4.2 mmol/L (3.5-5.1); Sodium 139 mmol/L (136-145)
[2017-06-16 07:12] LABS: Aspartate Aminotransferase 36 U/L (15-37); GFR African American 87 mL/min; GFR Non-African American 72 mL/min
[2017-06-16 07:17] LABS: Alkaline Phosphatase 111 U/L (45-117); Bilirubin, Total 0.6 mg/dL (0.2-1.0); Total Protein 6.9 g/dL (6.4-8.2)
[2017-06-16] MEDS: Boost Glucose Control 8 Ounces PO SCH ×3 (08:00→18:27)
[2017-06-16] MEDS: DOXYCYCLINE HYC 100MG/250ML 250 ML IV SCH ×2 (08:43→22:42)
[2017-06-16] MEDS: FUROSEMIDE 40 MG TAB PO SCH ×2 (08:44→18:27)
[2017-06-16] MEDS: POTASSIUM CHL 10 Meq TABLET PO SCH ×2 (09:27→21:45)
[2017-06-16] MEDS: METOPROLOL TARTRATE 25 MG TAB PO SCH ×2 (09:27→21:46)
[2017-06-16] MEDS: MORPHINE SULF 30 mg ER tab PO SCH ×2 (09:28→21:46)
[2017-06-16] MEDS: OXYCODONE W/ ACETAMINOPHEN 5/325MG TABLET PO SCH ×2 (09:28→21:47)
[2017-06-16] MEDS: TOPIRAMATE 100 MG TAB PO SCH ×2 (09:28→21:47)
[2017-06-16] MEDS: OLANZapine 5 MG TAB PO SCH (09:28)
[2017-06-16] MEDS ORDERED: DIPHENOXYLATE W/ATROPINE 2.5 MG TAB PO PRN (11:30)
[2017-06-16] MEDS: METOCLOPRAMIDE HCL 10 MG TAB PO SCH ×3 (11:30→21:47)
[2017-06-16] MEDS: ALUM & MAG HYDROX-SIMETH LIQ(MAALOX) 30 ML PO PRN (17:44)
[2017-06-16] MEDS: NITROGLYCERIN 0.2MG/HR TOPICAL PATCH TD SCH (18:00)
[2017-06-16] MEDS: traZODone HCL 50 MG TAB PO SCH (21:45)
[2017-06-16] MEDS: ATORVASTATIN 20 MG TAB PO SCH (21:45)
[2017-06-16] MEDS: QUEtiapine FUMARATE 25 MG TAB PO SCH (21:47)
[2017-06-17] MEDS: MORPHINE SULF INJ 2 MG/ML SYRINGE 1ML IV PRN ×4 (03:26→21:10)
[2017-06-17 05:00] VITALS: BP 107/64
[2017-06-17] MEDS: IPRATROPIUM BROM 0.5 MG/2.5ML INH SOL NEB SCH ×3 (06:37→19:02)
[2017-06-17] MEDS: ALBUTEROL SULF 2.5 MG/0.5ML(0.5%) NEB SOLN NEB SCH ×3 (06:37→19:02)
[2017-06-17 06:39] LABS: Basophils # (auto) 0.1 uL; Basophils % (auto) 0.8 % (0.0-2.0); Eosinophils # (auto) 0.1 uL; Eosinophils % (auto) 1.7 % (0.0-7.0); Hematocrit 41.6 % (41.0-53.0); Lymphocytes % (auto) 45.3 % (10.0-50.0); Mean Corpuscular Hemoglobin 34.4 pg (28.0-32.0); Mean Corpuscular Hgb Conc. 33.7 g/dL (32.0-36.0); Mean Corpuscular Volume 102.3 fL (80.0-100.0); Mean Platelet Volume 7.3 fL (6.9-10.8); Monocytes # (auto) 0.5 uL; Monocytes % (auto) 7.7 % (0.0-12.0); Neutrophils # (auto) 2.9 uL; Neutrophils % (auto) 44.5 % (37.0-80.0); Nucleated Red Blood Cells % 0.1 %; Platelet Count (auto) 241 10^3/uL (140-450); Red Cell Distribution Width 14.5 % (11.8-14.3); White Blood Cell 6.6 10^3/uL (4.4-10.8)
[2017-06-17] MEDS: METOCLOPRAMIDE HCL 10 MG TAB PO SCH ×4 (06:48→22:18)
[2017-06-17] MEDS: SODIUM CHLOR 0.9% PF (SALINE LOCK) 10ML VIAL IV SCH ×3 (06:48→22:21)
[2017-06-17] MEDS: GABAPENTIN 300 MG CAP PO SCH ×3 (06:48→22:17)
[2017-06-17] MEDS: ACCU-CHEK COMFORT CURVE STRIP VI SCH ×4 (06:48→22:22)
[2017-06-17] MEDS: InsuLIN REG 1unit/0.01ml Soln (100units/ml) SC SCH ×4 (06:49→22:00)
[2017-06-17 07:14] LABS: Albumin 3.4 g/dL (3.4-5.0); Alkaline Phosphatase 109 U/L (45-117); Anion Gap 6 (5-15); Aspartate Aminotransferase 29 U/L (15-37); BUN/Creatinine Ratio 23.4; Bilirubin, Total 0.6 mg/dL (0.2-1.0); Blood Urea Nitrogen 26 mg/dL (7-18); Calcium 8.1 mg/dL (8.5-10.1); Carbon Dioxide 27 mmol/L (21-32); Chloride 103 mmol/L (98-107); GFR African American 89 mL/min; GFR Non-African American 74 mL/min; Glucose 87 mg/dL (74-106); Potassium 4.5 mmol/L (3.5-5.1); Sodium 136 mmol/L (136-145); Total Protein 7.2 g/dL (6.4-8.2)
[2017-06-17] MEDS: Boost Glucose Control 8 Ounces PO SCH ×3 (08:00→18:16)
[2017-06-17 08:49] VITALS: BP 140/71
[2017-06-17] MEDS: DOXYCYCLINE HYC 100MG/250ML 250 ML IV SCH (08:57)
[2017-06-17] MEDS ORDERED: FUROSEMIDE 20 MG TAB PO ONE (09:00)
[2017-06-17] MEDS: TOPIRAMATE 100 MG TAB PO SCH ×2 (09:16→22:17)
[2017-06-17] MEDS: POTASSIUM CHL 10 Meq TABLET PO SCH ×2 (09:16→22:18)
[2017-06-17] MEDS: OXYCODONE W/ ACETAMINOPHEN 5/325MG TABLET PO SCH ×2 (09:16→22:18)
[2017-06-17] MEDS: OLANZapine 5 MG TAB PO SCH (09:16)
[2017-06-17] MEDS: MORPHINE SULF 30 mg ER tab PO SCH ×2 (09:17→22:18)
[2017-06-17] MEDS: METOPROLOL TARTRATE 25 MG TAB PO SCH ×2 (09:17→22:19)
[2017-06-17] MEDS: ALUM & MAG HYDROX-SIMETH LIQ(MAALOX) 30 ML PO PRN ×2 (12:12→19:46)
[2017-06-17 13:09] VITALS: BP 112/69
[2017-06-17] MEDS ORDERED: FUROSEMIDE 40 MG TAB PO ONE (13:45)
[2017-06-17 16:23] VITALS: BP 111/70
[2017-06-17] MEDS: FUROSEMIDE 20 MG TAB PO SCH (17:07)
[2017-06-17] MEDS: SPIRONOLACTONE 25 MG TAB PO SCH (17:07)
[2017-06-17] MEDS: NITROGLYCERIN 0.2MG/HR TOPICAL PATCH TD SCH (17:08)
[2017-06-17] MEDS ORDERED: FUROSEMIDE 20 MG TAB PO SCH (18:00)
[2017-06-17 22:00] VITALS: BP 139/77
[2017-06-17] MEDS: DOXYCYCLINE 100 MG TAB/CAP PO SCH (22:17)
[2017-06-17] MEDS: ATORVASTATIN 20 MG TAB PO SCH (22:18)
[2017-06-17] MEDS: QUEtiapine FUMARATE 25 MG TAB PO SCH (22:19)
[2017-06-17] MEDS: traZODone HCL 50 MG TAB PO SCH (22:24)
[2017-06-18] MEDS: IPRATROPIUM BROM 0.5 MG/2.5ML INH SOL NEB SCH ×4 (00:39→19:23)
[2017-06-18] MEDS: ALBUTEROL SULF 2.5 MG/0.5ML(0.5%) NEB SOLN NEB SCH ×4 (00:40→19:23)
[2017-06-18] MEDS: MORPHINE SULF INJ 2 MG/ML SYRINGE 1ML IV PRN (03:49)
[2017-06-18 05:00] VITALS: BP 122/74
[2017-06-18] MEDS: SPIRONOLACTONE 25 MG TAB PO SCH ×2 (06:19→17:57)
[2017-06-18] MEDS: GABAPENTIN 300 MG CAP PO SCH ×3 (06:19→21:26)
[2017-06-18] MEDS: METOCLOPRAMIDE HCL 10 MG TAB PO SCH ×4 (06:20→21:28)
[2017-06-18] MEDS: SODIUM CHLOR 0.9% PF (SALINE LOCK) 10ML VIAL IV SCH (06:20)
[2017-06-18] MEDS: InsuLIN REG 1unit/0.01ml Soln (100units/ml) SC SCH (06:24)
[2017-06-18] MEDS: ACCU-CHEK COMFORT CURVE STRIP VI SCH (06:24)
[2017-06-18 06:48] LABS: Basophils # (auto) 0.1 uL; Basophils % (auto) 0.9 % (0.0-2.0); Eosinophils # (auto) 0.2 uL; Eosinophils % (auto) 2.2 % (0.0-7.0); Hematocrit 41.4 % (41.0-53.0); Lymphocytes % (auto) 39.4 % (10.0-50.0); Mean Corpuscular Hemoglobin 33.7 pg (28.0-32.0); Mean Corpuscular Hgb Conc. 33.7 g/dL (32.0-36.0); Mean Corpuscular Volume 99.9 fL (80.0-100.0); Mean Platelet Volume 7.6 fL (6.9-10.8); Monocytes # (auto) 0.5 uL; Monocytes % (auto) 7.2 % (0.0-12.0); Neutrophils # (auto) 3.9 uL; Neutrophils % (auto) 50.3 % (37.0-80.0); Nucleated Red Blood Cells % 0.2 %; Platelet Count (auto) 248 10^3/uL (140-450); Red Cell Distribution Width 14.3 % (11.8-14.3); White Blood Cell 7.7 10^3/uL (4.4-10.8)
[2017-06-18 07:34] LABS: Albumin 3.4 g/dL (3.4-5.0); Alkaline Phosphatase 103 U/L (45-117); Anion Gap 10 (5-15); Aspartate Aminotransferase 41 U/L (15-37); BUN/Creatinine Ratio 26.9; Bilirubin, Total 0.5 mg/dL (0.2-1.0); Blood Urea Nitrogen 28 mg/dL (7-18); Calcium 8.3 mg/dL (8.5-10.1); Carbon Dioxide 23 mmol/L (21-32); Chloride 104 mmol/L (98-107); GFR African American 96 mL/min; GFR Non-African American 79 mL/min; Glucose 80 mg/dL (74-106); Potassium 4.6 mmol/L (3.5-5.1); Sodium 137 mmol/L (136-145); Total Protein 7.2 g/dL (6.4-8.2)
[2017-06-18] MEDS: Boost Glucose Control 8 Ounces PO SCH ×2 (08:00→12:16)
[2017-06-18 09:38] VITALS: BP 114/71
[2017-06-18] MEDS: TOPIRAMATE 100 MG TAB PO SCH ×2 (10:52→21:28)
[2017-06-18] MEDS: DOXYCYCLINE 100 MG TAB/CAP PO SCH ×2 (10:52→21:26)
[2017-06-18] MEDS: OLANZapine 5 MG TAB PO SCH (10:52)
[2017-06-18] MEDS: OXYCODONE W/ ACETAMINOPHEN 5/325MG TABLET PO SCH ×2 (10:53→21:27)
[2017-06-18] MEDS: POTASSIUM CHL 10 Meq TABLET PO SCH ×2 (10:53→21:26)
[2017-06-18] MEDS: MORPHINE SULF 30 mg ER tab PO SCH ×2 (10:53→21:27)
[2017-06-18] MEDS: FUROSEMIDE 20 MG TAB PO SCH ×2 (10:57→17:59)
[2017-06-18 13:00] VITALS: BP 136/81
[2017-06-18 17:09] VITALS: BP 147/76
[2017-06-18] MEDS: traZODone HCL 50 MG TAB PO SCH (21:27)
[2017-06-18] MEDS: QUEtiapine FUMARATE 25 MG TAB PO SCH (21:27)
[2017-06-18 22:00] VITALS: BP 119/73
[2017-06-19] MEDS: ALBUTEROL SULF 2.5 MG/0.5ML(0.5%) NEB SOLN NEB SCH ×2 (00:43→07:17)
[2017-06-19] MEDS: IPRATROPIUM BROM 0.5 MG/2.5ML INH SOL NEB SCH ×2 (00:43→07:17)
[2017-06-19 05:00] VITALS: BP 112/83
[2017-06-19] MEDS: SPIRONOLACTONE 25 MG TAB PO SCH (06:17)
[2017-06-19] MEDS: GABAPENTIN 300 MG CAP PO SCH (06:17)
[2017-06-19] MEDS: METOCLOPRAMIDE HCL 10 MG TAB PO SCH (06:34)
[2017-06-19 08:00] VITALS: BP 106/57
[2017-06-19] MEDS: FUROSEMIDE 20 MG TAB PO SCH (08:00)
[2017-06-19 08:04] VITALS: BP 106/57
[2017-06-19] MEDS: OLANZapine 5 MG TAB PO SCH (10:00)
[2017-06-19] MEDS: TOPIRAMATE 100 MG TAB PO SCH (10:00)
[2017-06-19] MEDS: OXYCODONE W/ ACETAMINOPHEN 5/325MG TABLET PO SCH (10:00)
[2017-06-19] MEDS: MORPHINE SULF 30 mg ER tab PO SCH (10:00)
[2017-06-19] MEDS: DOXYCYCLINE 100 MG TAB/CAP PO SCH (10:00)
[2017-06-19] MEDS: POTASSIUM CHL 10 Meq TABLET PO SCH (10:00)
[2017-06-19 10:24] VITALS: BP 106/57
== END 2017-06-19 13:03 | disposition home or self-care (01) | DRG 291 ==
LOC: ER 12:24 → EDBD 12:24 → TELE 12:25 → TELE-CENTR 20:20 → CENTRAL 06-18 10:11
PROVIDERS: ADMIT Internal Medicine; ATTEND Internal Medicine
DX: I13.0 Hypertensive heart and chronic kidney disease with heart failure and stage 1 through stage 4 chronic kidney disease, or unspecified chronic kidney disease (principal); I50.43 Acute on chronic combined systolic (congestive) and diastolic (congestive) heart failure; K92.0 Hematemesis; J96.10 Chronic respiratory failure, unspecified whether with hypoxia or hypercapnia; I71.2 Thoracic aortic aneurysm, without rupture; E10.21 Type 1 diabetes mellitus with diabetic nephropathy; E44.0 Moderate protein-calorie malnutrition; L03.115 Cellulitis of right lower limb; J44.1 Chronic obstructive pulmonary disease with (acute) exacerbation; Z68.41 Body mass index [BMI] 40.0-44.9, adult; L03.116 Cellulitis of left lower limb; F20.9 Schizophrenia, unspecified; E66.01 Morbid (severe) obesity due to excess calories; E03.9 Hypothyroidism, unspecified; N18.2 Chronic kidney disease, stage 2 (mild); F17.210 Nicotine dependence, cigarettes, uncomplicated; I87.2 Venous insufficiency (chronic) (peripheral); F32.9 Major depressive disorder, single episode, unspecified; F41.9 Anxiety disorder, unspecified; K59.00 Constipation, unspecified; G47.00 Insomnia, unspecified; E10.22 Type 1 diabetes mellitus with diabetic chronic kidney disease; I25.10 Atherosclerotic heart disease of native coronary artery without angina pectoris; Z88.6 Allergy status to analgesic agent; Z88.0 Allergy status to penicillin; I25.2 Old myocardial infarction; Z95.5 Presence of coronary angioplasty implant and graft; Z82.49 Family history of ischemic heart disease and other diseases of the circulatory system; Z87.442 Personal history of urinary calculi; Z86.73 Personal history of transient ischemic attack (TIA), and cerebral infarction without residual deficits; Z91.19 Patient's noncompliance with other medical treatment and regimen; Z88.8 Allergy status to other drugs, medicaments and biological substances; Z79.899 Other long term (current) drug therapy
CPT/HCPCS: 36415; 71020; 71275; 80053; 80061; 80307; 81001; 82550; 82962; 83036; 83735; 83880; 84443; 84484; 85025; 85379; 85610; 85652; 85730; 86141; 87045; 87070; 87205; 87493; 87899; 93005; 93971; 94640; 96361; 96372; 96374; 96375; J1815; J2405; J3490

== ENCOUNTER 2017-07-26 16:09 | Emergency (ER) | payer MEDICARE, MEDICAID ==
[~2017-07-26] VITALS: Ht 180.3 cm; Wt 158.8 kg
[2017-07-26] MEDS ORDERED: HYDROmorphone HCL 2 MG/ML VL IV ONE ×2 (18:45→22:45)
[2017-07-26] MEDS ORDERED: ONDANSETRON HCL 4 MG/2 ML VIAL IV ONE (18:45)
[2017-07-26] MEDS ORDERED: ALBUTEROL SULF 2.5 MG/0.5ML(0.5%) NEB SOLN NEB ONE (21:15)
[2017-07-26] MEDS ORDERED: methylPREDNISolone SOD SUCC 125 MG/2 ML VL IV ONE (21:15)
[2017-07-26] MEDS ORDERED: IPRATROPIUM BROM 0.5 MG/2.5ML INH SOL NEB ONE (21:15)
[2017-07-26 23:12] VITALS: BP 106/55
== END 2017-07-26 23:29 | disposition home or self-care (01) ==
LOC: ER 16:09 → EDBD 16:09 → ER 23:29
DX: S83.91XA Sprain of unspecified site of right knee, initial encounter (principal); M17.11 Unilateral primary osteoarthritis, right knee; F17.210 Nicotine dependence, cigarettes, uncomplicated; J45.909 Unspecified asthma, uncomplicated; I13.0 Hypertensive heart and chronic kidney disease with heart failure and stage 1 through stage 4 chronic kidney disease, or unspecified chronic kidney disease; E11.22 Type 2 diabetes mellitus with diabetic chronic kidney disease; N18.9 Chronic kidney disease, unspecified; I50.9 Heart failure, unspecified; I25.2 Old myocardial infarction; Z87.442 Personal history of urinary calculi; E07.89 Other specified disorders of thyroid; Z88.0 Allergy status to penicillin; Z88.8 Allergy status to other drugs, medicaments and biological substances; Z98.61 Coronary angioplasty status; X58.XXXA Exposure to other specified factors, initial encounter; Y93.89 Activity, other specified; Y99.8 Other external cause status; Y92.89 Other specified places as the place of occurrence of the external cause
CPT/HCPCS: 71010; 73562; 73700; 94640; 96374; 96375; 96376; 99284; J1170; J2405; J2930

== ENCOUNTER 2017-07-31 20:24 | Emergency (ER) | payer MEDICARE, MEDICAID ==
[~2017-07-31] VITALS: Ht 177.8 cm; Wt 204.1 kg
[2017-08-01] MEDS ORDERED: SODIUM CHLORIDE 0.9% 1,000 ML IV ONE (08:27)
[2017-08-01] MEDS ORDERED: IPRATROPIUM BROM 0.5 MG/2.5ML INH SOL NEB ONE (08:30)
[2017-08-01] MEDS ORDERED: ALBUTEROL SULF 2.5 MG/0.5ML(0.5%) NEB SOLN NEB ONE (08:30)
[2017-08-01 09:39] LABS: Basophils # (auto) 0.1 uL; Lymphocytes # (auto) 3.1 uL; Monocytes # (auto) 0.7 uL; White Blood Cell 10.4 10^3/uL (4.4-10.8)
[2017-08-01 09:41] LABS: Basophils % (auto) 0.8 % (0.0-2.0); Eosinophils # (auto) 0 uL; Eosinophils % (auto) 0.4 % (0.0-7.0); Hemoglobin 15.3 g/dL (13.5-17.5); Mean Corpuscular Hemoglobin 34.7 pg (28.0-32.0); Mean Corpuscular Hgb Conc. 34.8 g/dL (32.0-36.0); Mean Corpuscular Volume 99.7 fL (80.0-100.0); Monocytes % (auto) 6.5 % (0.0-12.0); Neutrophils # (auto) 6.5 uL; Neutrophils % (auto) 62.3 % (37.0-80.0); Nucleated Red Blood Cells % 0.1 %; Platelet Count (auto) 248 10^3/uL (140-450); Red Blood Cells 4.41 10^6/uL (4.5-5.90); Red Cell Distribution Width 12.7 % (11.8-14.3)
[2017-08-01 09:53] LABS: INR 0.93 (0.9-1.15); Partial Thromboplastin Time 25.4 sec (22.64-33.71); Prothrombin Time 10.1 sec (9.37-12.3)
[2017-08-01 10:00] VITALS: BP 133/69
[2017-08-01 10:12] LABS: Magnesium 2.5 mg/dL (1.6-2.6)
[2017-08-01 10:17] LABS: Albumin 3.5 g/dL (3.4-5.0); BUN/Creatinine Ratio 17.5; Bilirubin, Total 0.7 mg/dL (0.2-1.0); Calcium 8.8 mg/dL (8.5-10.1); Potassium 3.9 mmol/L (3.5-5.1); Total Protein 7.1 g/dL (6.4-8.2)
[2017-08-01] MEDS ORDERED: ACETAMINOPHEN 500 MG TAB PO ONE (10:45)
== END 2017-08-01 08:03 | disposition left against medical advice (07) ==
LOC: EDBD 20:24 → ER 20:31
DX: J44.1 Chronic obstructive pulmonary disease with (acute) exacerbation (principal); E11.22 Type 2 diabetes mellitus with diabetic chronic kidney disease; F17.210 Nicotine dependence, cigarettes, uncomplicated; I13.0 Hypertensive heart and chronic kidney disease with heart failure and stage 1 through stage 4 chronic kidney disease, or unspecified chronic kidney disease; E07.9 Disorder of thyroid, unspecified; I50.9 Heart failure, unspecified; N18.9 Chronic kidney disease, unspecified; I25.2 Old myocardial infarction; I25.10 Atherosclerotic heart disease of native coronary artery without angina pectoris; E66.01 Morbid (severe) obesity due to excess calories; Z68.44 Body mass index [BMI] 60.0-69.9, adult; Z87.442 Personal history of urinary calculi; Z86.73 Personal history of transient ischemic attack (TIA), and cerebral infarction without residual deficits; Z98.61 Coronary angioplasty status
CPT/HCPCS: 36415; 71010; 71020; 80053; 80164; 83735; 83880; 84443; 84484; 85025; 85379; 85610; 85730; 93005; 94640; 94761; 96360; 99285; J7030

== ENCOUNTER 2017-08-12 14:49 | Inpatient (IN) | payer MEDICARE, MEDICAID ==
[~2017-08-12] VITALS: Ht 182.9 cm; Wt 172.2 kg
[2017-08-12] MEDS ORDERED: SODIUM CHLORIDE 0.9% 1,000 ML IVB ONE (19:57)
[2017-08-12] MEDS ORDERED: PANTOPRAZOLE 40 MG/10 ML VIAL IV ONE (20:30)
[2017-08-12] MEDS ORDERED: ONDANSETRON HCL 4 MG/2 ML VIAL IV ONE (20:30)
[2017-08-12 20:31] LABS: Basophils # (auto) 0.1 uL; Eosinophils # (auto) 0 uL; Eosinophils % (auto) 0.4 % (0.0-7.0); Monocytes # (auto) 0.5 uL; Neutrophils # (auto) 4.1 uL; Nucleated Red Blood Cells % 0.1 %
[2017-08-12 20:33] LABS: Hematocrit 44.9 % (41.0-53.0); Hemoglobin 15.7 g/dL (13.5-17.5); INR 0.95 (0.9-1.15); Lymphocytes # (auto) 2.7 uL; Lymphocytes % (auto) 36.6 % (10.0-50.0); Mean Corpuscular Hemoglobin 34.8 pg (28.0-32.0); Mean Corpuscular Volume 99.3 fL (80.0-100.0); Mean Platelet Volume 8.2 fL (6.9-10.8); Monocytes % (auto) 6.4 % (0.0-12.0); Neutrophils % (auto) 55.6 % (37.0-80.0); Partial Thromboplastin Time 26.1 sec (22.64-33.71); Platelet Count (auto) 216 10^3/uL (140-450); Prothrombin Time 10.4 sec (9.37-12.3); Red Cell Distribution Width 12.8 % (11.8-14.3); White Blood Cell 7.4 10^3/uL (4.4-10.8)
[2017-08-12 20:37] LABS: Albumin 3.5 g/dL (3.4-5.0); BUN/Creatinine Ratio 8.9; Calcium 8.9 mg/dL (8.5-10.1)
[2017-08-12 20:39] LABS: Total Protein 7.5 g/dL (6.4-8.2)
[2017-08-12 20:40] LABS: Magnesium 2.2 mg/dL (1.6-2.6)
[2017-08-12] MEDS: MORPHINE SULF INJ 2 MG/ML SYRINGE 1ML IV PRN (21:20)
[2017-08-13] VITALS (7 sets, daily range): BP systolic 103–127; BP diastolic 51–76
[2017-08-13] MEDS: HYDROmorphone HCL 2 MG/ML VL IV PRN ×3 (01:50→10:12)
[2017-08-13] MEDS: GABAPENTIN 300 MG CAP PO SCH ×3 (05:42→21:52)
[2017-08-13 08:13] LABS: Basophils # (auto) 0.1 uL; Eosinophils # (auto) 0.1 uL; Eosinophils % (auto) 0.8 % (0.0-7.0); Hemoglobin 16.2 g/dL (13.5-17.5); Lymphocytes # (auto) 3.5 uL; Lymphocytes % (auto) 41.6 % (10.0-50.0); Mean Corpuscular Hemoglobin 33.9 pg (28.0-32.0); Mean Corpuscular Hgb Conc. 33.9 g/dL (32.0-36.0); Mean Corpuscular Volume 100.3 fL (80.0-100.0); Mean Platelet Volume 8.5 fL (6.9-10.8); Monocytes # (auto) 0.6 uL; Monocytes % (auto) 7.5 % (0.0-12.0); Neutrophils # (auto) 4.1 uL; Neutrophils % (auto) 49.1 % (37.0-80.0); Nucleated Red Blood Cells % 0.1 %; Platelet Count (auto) 201 10^3/uL (140-450); Red Cell Distribution Width 12.8 % (11.8-14.3); White Blood Cell 8.4 10^3/uL (4.4-10.8)
[2017-08-13 08:19] LABS: BUN/Creatinine Ratio 9.9; Calcium 8.6 mg/dL (8.5-10.1); Potassium 4.1 mmol/L (3.5-5.1)
[2017-08-13] MEDS: ALBUTEROL SULF 2.5 MG/0.5ML(0.5%) NEB SOLN NEB PRN (09:43)
[2017-08-13] MEDS: ONDANSETRON HCL 4 MG/2 ML VIAL IV PRN ×2 (10:12→18:34)
[2017-08-13] MEDS: PANTOPRAZOLE 40 MG/10 ML VIAL IV SCH ×2 (10:14→21:51)
[2017-08-13] MEDS: POTASSIUM CHLORIDE 8 MEQ TAB PO SCH (10:15)
[2017-08-13] MEDS: FUROSEMIDE 40 MG TAB PO SCH (10:16)
[2017-08-13] MEDS: MORPHINE SULF INJ 2 MG/ML SYRINGE 1ML IV PRN ×3 (14:25→23:02)
[2017-08-13 20:07] LABS: Urine Bilirubin Negative (Negative); Urine Blood Negative /uL (Negative); Urine Color Yellow (Yellow); Urine Glucose Normal (Normal); Urine Ketone Negative (Negative); Urine Mucus FEW (None Seen); Urine Nitrite Negative (Negative); Urine RBC <1 /hpf (0 - 3); Urine Urobilinogen Normal (Negative)
[2017-08-13] MEDS: QUEtiapine FUMARATE 25 MG TAB PO SCH (21:52)
[2017-08-13] MEDS: traZODone HCL 50 MG TAB PO SCH (21:52)
[2017-08-14] MEDS: MORPHINE SULF INJ 2 MG/ML SYRINGE 1ML IV PRN ×4 (04:03→20:30)
[2017-08-14 05:00] VITALS: BP 98/66
[2017-08-14] MEDS: GABAPENTIN 300 MG CAP PO SCH ×3 (05:31→20:36)
[2017-08-14 06:54] LABS: Eosinophils # (auto) 0.1 uL; Lymphocytes # (auto) 2.3 uL; White Blood Cell 5.7 10^3/uL (4.4-10.8)
[2017-08-14 06:56] LABS: Basophils # (auto) 0.1 uL; Basophils % (auto) 1.2 % (0.0-2.0); Hematocrit 44.5 % (41.0-53.0); Hemoglobin 15.2 g/dL (13.5-17.5); Lymphocytes % (auto) 39.7 % (10.0-50.0); Mean Corpuscular Hemoglobin 34.2 pg (28.0-32.0); Mean Corpuscular Hgb Conc. 34.1 g/dL (32.0-36.0); Mean Corpuscular Volume 100.2 fL (80.0-100.0); Mean Platelet Volume 7.8 fL (6.9-10.8); Monocytes # (auto) 0.4 uL; Monocytes % (auto) 7.7 % (0.0-12.0); Neutrophils # (auto) 2.9 uL; Neutrophils % (auto) 50.4 % (37.0-80.0); Platelet Count (auto) 180 10^3/uL (140-450); Red Cell Distribution Width 12.7 % (11.8-14.3)
[2017-08-14 07:08] LABS: INR 0.97 (0.9-1.15); Prothrombin Time 10.6 sec (9.37-12.3)
[2017-08-14 07:15] LABS: Albumin 3.1 g/dL (3.4-5.0); BUN/Creatinine Ratio 6.1; Bilirubin, Total 1.2 mg/dL (0.2-1.0); Calcium 8.5 mg/dL (8.5-10.1); Magnesium 2.1 mg/dL (1.6-2.6); Potassium 4.3 mmol/L (3.5-5.1); Total Protein 6.4 g/dL (6.4-8.2)
[2017-08-14 09:00] VITALS: BP 97/58
[2017-08-14] MEDS: PANTOPRAZOLE 40 MG/10 ML VIAL IV SCH ×3 (09:38→20:36)
[2017-08-14] MEDS: ALBUTEROL SULF 2.5 MG/0.5ML(0.5%) NEB SOLN NEB PRN (10:04)
[2017-08-14] MEDS: POTASSIUM CHLORIDE 8 MEQ TAB PO SCH (10:45)
[2017-08-14] MEDS: FUROSEMIDE 40 MG TAB PO SCH (10:46)
[2017-08-14 13:00] VITALS: BP 116/73
[2017-08-14] MEDS ORDERED: HYDROcodone-ACET 5/325MG TAB PO PRN (14:00)
[2017-08-14 17:04] VITALS: BP 99/63
[2017-08-14] MEDS ORDERED: MORPHINE SULF INJ 2 MG/ML SYRINGE 1ML IV PRN (20:15)
[2017-08-14] MEDS ORDERED: NITROGLYCERIN 0.4 MG SL TAB SL PRN (20:15)
[2017-08-14] MEDS: QUEtiapine FUMARATE 25 MG TAB PO SCH (20:36)
[2017-08-14] MEDS: SODIUM CHLOR 0.9% PF (SALINE LOCK) 10ML VIAL IV SCH (20:36)
[2017-08-14] MEDS: traZODone HCL 50 MG TAB PO SCH (20:36)
[2017-08-14] MEDS: LORazepam 0.5 MG TAB PO PRN (21:52)
[2017-08-14 22:00] VITALS: BP 126/67
[2017-08-15] MEDS: MORPHINE SULF INJ 2 MG/ML SYRINGE 1ML IV PRN ×6 (01:00→21:10)
[2017-08-15] MEDS: SODIUM CHLOR 0.9% PF (SALINE LOCK) 10ML VIAL IV SCH ×3 (05:09→22:36)
[2017-08-15] MEDS: GABAPENTIN 300 MG CAP PO SCH ×3 (05:09→22:37)
[2017-08-15 05:34] VITALS: BP 118/83
[2017-08-15 09:00] VITALS: BP 103/67
[2017-08-15] MEDS: FUROSEMIDE 40 MG TAB PO SCH (09:49)
[2017-08-15] MEDS: POTASSIUM CHLORIDE 8 MEQ TAB PO SCH (09:49)
[2017-08-15 11:44] VITALS: BP 106/68
[2017-08-15] MEDS: PANTOPRAZOLE 40 MG/10 ML VIAL IV SCH ×2 (12:29→22:36)
[2017-08-15 17:00] VITALS: BP 121/60
[2017-08-15 20:00] VITALS: BP 97/63
[2017-08-15 21:40] VITALS: BP 97/63
[2017-08-15] MEDS: traZODone HCL 50 MG TAB PO SCH (22:37)
[2017-08-15] MEDS: QUEtiapine FUMARATE 25 MG TAB PO SCH (22:37)
[2017-08-16] VITALS (7 sets, daily range): BP systolic 100–121; BP diastolic 47–66
[2017-08-16] MEDS: MORPHINE SULF INJ 2 MG/ML SYRINGE 1ML IV PRN ×5 (01:22→19:51)
[2017-08-16] MEDS: GABAPENTIN 300 MG CAP PO SCH ×3 (05:47→21:40)
[2017-08-16] MEDS: SODIUM CHLOR 0.9% PF (SALINE LOCK) 10ML VIAL IV SCH ×3 (05:47→21:40)
[2017-08-16] MEDS: PANTOPRAZOLE 40 MG/10 ML VIAL IV SCH ×2 (09:59→21:39)
[2017-08-16] MEDS: POTASSIUM CHLORIDE 8 MEQ TAB PO SCH (09:59)
[2017-08-16] MEDS: FUROSEMIDE 40 MG TAB PO SCH (10:01)
[2017-08-16] MEDS ORDERED: GOLYTELY 4L KIT PO ONE (12:00)
[2017-08-16] MEDS: traZODone HCL 50 MG TAB PO SCH (21:40)
[2017-08-16] MEDS: LORazepam 0.5 MG TAB PO PRN (21:41)
[2017-08-16] MEDS: QUEtiapine FUMARATE 25 MG TAB PO SCH (21:41)
[2017-08-16] MEDS: ALBUTEROL SULF 2.5 MG/0.5ML(0.5%) NEB SOLN NEB PRN (23:00)
[2017-08-17] MEDS: MORPHINE SULF INJ 2 MG/ML SYRINGE 1ML IV PRN ×3 (00:06→08:52)
[2017-08-17 05:00] VITALS: BP 108/60
[2017-08-17] MEDS: GABAPENTIN 300 MG CAP PO SCH ×2 (06:10→15:05)
[2017-08-17 06:11] LABS: Basophils # (auto) 0 uL; Basophils % (auto) 0.7 % (0.0-2.0); Eosinophils # (auto) 0.1 uL; Lymphocytes # (auto) 2.4 uL; Monocytes # (auto) 0.4 uL; White Blood Cell 5.4 10^3/uL (4.4-10.8)
[2017-08-17] MEDS: SODIUM CHLOR 0.9% PF (SALINE LOCK) 10ML VIAL IV SCH ×2 (06:11→15:05)
[2017-08-17 06:13] LABS: Eosinophils % (auto) 1.4 % (0.0-7.0); Hematocrit 42.8 % (41.0-53.0); Hemoglobin 14.8 g/dL (13.5-17.5); Lymphocytes % (auto) 43.3 % (10.0-50.0); Mean Corpuscular Hemoglobin 34.2 pg (28.0-32.0); Mean Corpuscular Hgb Conc. 34.5 g/dL (32.0-36.0); Mean Corpuscular Volume 99.2 fL (80.0-100.0); Mean Platelet Volume 7.9 fL (6.9-10.8); Monocytes % (auto) 7.7 % (0.0-12.0); Neutrophils # (auto) 2.6 uL; Neutrophils % (auto) 46.9 % (37.0-80.0); Nucleated Red Blood Cells % 0.3 %; Platelet Count (auto) 174 10^3/uL (140-450); Red Cell Distribution Width 12.4 % (11.8-14.3)
[2017-08-17 06:38] LABS: BUN/Creatinine Ratio 5.6; Calcium 8.3 mg/dL (8.5-10.1); Potassium 4.1 mmol/L (3.5-5.1)
[2017-08-17 08:00] VITALS: BP 110/70
[2017-08-17] MEDS: ALBUTEROL SULF 2.5 MG/0.5ML(0.5%) NEB SOLN NEB PRN (08:59)
[2017-08-17 09:00] VITALS: BP 114/65
[2017-08-17] MEDS ORDERED: PROPOFOL 10 MG/ML 20 ML IV ONE (09:38)
[2017-08-17] MEDS ORDERED: fentaNYL CITRATE 100 MCG/2 ML VL ONE (09:38)
[2017-08-17] MEDS ORDERED: MIDAZOLAM HCL 1MG/1ML-2 ML VIAL ONE (09:38)
[2017-08-17] MEDS: FUROSEMIDE 40 MG TAB PO SCH ×2 (10:00→11:54)
[2017-08-17] MEDS: POTASSIUM CHLORIDE 8 MEQ TAB PO SCH ×2 (10:00→11:53)
[2017-08-17] MEDS: PANTOPRAZOLE 40 MG/10 ML VIAL IV SCH ×2 (10:00→11:53)
[2017-08-17] MEDS ORDERED: METOCLOPRAMIDE HCL 5MG/ml INJ 2ml VIAL IV ONE (10:30)
[2017-08-17] MEDS ORDERED: fentaNYL CITRATE 100 MCG/2 ML VL IV ONE (11:00)
[2017-08-17 13:00] VITALS: BP 143/74
[2017-08-17] MEDS ORDERED: MORPHINE SULF INJ 2 MG/ML SYRINGE 1ML IM ONE (13:00)
[2017-08-17 17:00] VITALS: BP 113/68
== END 2017-08-17 17:50 | disposition home or self-care (01) | DRG 378 ==
LOC: ER 14:49 → OVERFLOW 14:50 → WEST WING 08-13 02:35 → TELE-WESTW 08-14 20:25
PROVIDERS: ADMIT Nurse Practitioner Family; ATTEND Internal Medicine
PROC: 0DJD8ZZ Inspection of Lower Intestinal Tract, Via Natural or Artificial Opening Endoscopic (ICD-10-PCS; principal; 2017-08-17 10:25)
PROC: 02HV33Z Insertion of Infusion Device into Superior Vena Cava, Percutaneous Approach (ICD-10-PCS; 2017-08-17 10:25)
DX: K29.81 Duodenitis with bleeding (principal); I50.32 Chronic diastolic (congestive) heart failure; I11.0 Hypertensive heart disease with heart failure; E66.01 Morbid (severe) obesity due to excess calories; Z68.43 Body mass index [BMI] 50.0-59.9, adult; K92.1 Melena; E11.9 Type 2 diabetes mellitus without complications; F17.210 Nicotine dependence, cigarettes, uncomplicated; F20.9 Schizophrenia, unspecified; F31.9 Bipolar disorder, unspecified; I25.10 Atherosclerotic heart disease of native coronary artery without angina pectoris; J44.9 Chronic obstructive pulmonary disease, unspecified; K42.9 Umbilical hernia without obstruction or gangrene; Z79.899 Other long term (current) drug therapy; Z87.442 Personal history of urinary calculi; I25.2 Old myocardial infarction
CPT/HCPCS: 36415; 36569; 43239; 45378; 71010; 74176; 80048; 80053; 81001; 82150; 82962; 83690; 83735; 85025; 85610; 85730; 86850; 86900; 86901; 87081; 93005; 94640; C9113; J2250; J2405; J2704

== ENCOUNTER 2017-08-28 14:27 | Emergency (ER) | payer MEDICARE, MEDICAID ==
[~2017-08-28] VITALS: Ht 180.3 cm; Wt 199.6 kg
[~2017-08-28 14:27] MED LIST changes: -DIVA500T7 PO; -NITR0.4S29 SL; -POTA10TA34 PO; -TOPI100T68 PO
[2017-08-28 14:55] VITALS: BP 130/80
[2017-08-28 15:28] LABS: Basophils # (auto) 0.1 uL; Eosinophils # (auto) 0 uL; Eosinophils % (auto) 0.6 % (0.0-7.0); Hematocrit 45.4 % (41.0-53.0); Hemoglobin 15.6 g/dL (13.5-17.5); Lymphocytes # (auto) 1.7 uL; Lymphocytes % (auto) 29.8 % (10.0-50.0); Mean Corpuscular Hemoglobin 34.5 pg (28.0-32.0); Mean Corpuscular Hgb Conc. 34.4 g/dL (32.0-36.0); Mean Corpuscular Volume 100.3 fL (80.0-100.0); Mean Platelet Volume 7.7 fL (6.9-10.8); Monocytes # (auto) 0.5 uL; Monocytes % (auto) 8.2 % (0.0-12.0); Neutrophils # (auto) 3.4 uL; Neutrophils % (auto) 60.4 % (37.0-80.0); Nucleated Red Blood Cells % 0.1 %; Platelet Count (auto) 204 10^3/uL (140-450); Red Cell Distribution Width 13.2 % (11.8-14.3); White Blood Cell 5.6 10^3/uL (4.4-10.8)
[2017-08-28] MEDS ORDERED: DIPHENOXYLATE W/ATROPINE 2.5 MG TAB PO ONE (15:45)
[2017-08-28] MEDS ORDERED: CIPROFLOXACIN HCL 500 MG TAB PO ONE (15:45)
[2017-08-28 15:46] LABS: Albumin 3.2 g/dL (3.4-5.0); BUN/Creatinine Ratio 11.2; Calcium 8.5 mg/dL (8.5-10.1); Potassium 3.7 mmol/L (3.5-5.1); Total Protein 7.1 g/dL (6.4-8.2)
== END 2017-08-28 16:04 | disposition home or self-care (01) ==
LOC: EDBD 14:27 → ER 14:27
DX: R19.7 Diarrhea, unspecified (principal); E66.01 Morbid (severe) obesity due to excess calories; Z68.44 Body mass index [BMI] 60.0-69.9, adult; Z88.0 Allergy status to penicillin; Z88.8 Allergy status to other drugs, medicaments and biological substances
CPT/HCPCS: 36415; 80053; 85025; 93005

== ENCOUNTER 2017-09-01 15:46 | Emergency (ER) | payer MEDICARE, MEDICAID ==
[~2017-09-01] VITALS: Ht 182.9 cm; Wt 165.6 kg
[2017-09-01 19:56] VITALS: BP 125/83
[2017-09-01 20:55] LABS: Basophils # (auto) 0.1 uL; Basophils % (auto) 0.6 % (0.0-2.0); Eosinophils # (auto) 0.1 uL; Eosinophils % (auto) 0.6 % (0.0-7.0); Hematocrit 44.2 % (41.0-53.0); Hemoglobin 15.2 g/dL (13.5-17.5); Lymphocytes # (auto) 2.6 uL; Lymphocytes % (auto) 31.4 % (10.0-50.0); Mean Corpuscular Hemoglobin 33.9 pg (28.0-32.0); Mean Corpuscular Hgb Conc. 34.3 g/dL (32.0-36.0); Mean Platelet Volume 7.7 fL (6.9-10.8); Monocytes # (auto) 0.5 uL; Monocytes % (auto) 6.1 % (0.0-12.0); Neutrophils # (auto) 5.1 uL; Neutrophils % (auto) 61.3 % (37.0-80.0); Nucleated Red Blood Cells % 0.2 %; Platelet Count (auto) 225 10^3/uL (140-450); Red Cell Distribution Width 13.1 % (11.8-14.3); White Blood Cell 8.3 10^3/uL (4.4-10.8)
[2017-09-01 21:12] LABS: Albumin 3.2 g/dL (3.4-5.0); BUN/Creatinine Ratio 12.2; Calcium 8.6 mg/dL (8.5-10.1); Magnesium 2.2 mg/dL (1.6-2.6); Potassium 3.7 mmol/L (3.5-5.1)
[2017-09-01 21:15] LABS: Bilirubin, Total 0.7 mg/dL (0.2-1.0); Total Protein 6.6 g/dL (6.4-8.2)
[2017-09-01] MEDS ORDERED: VALPROATE INJ 1,000 MG in SODIUM CHL 0.9% 100 ML IV ONE (21:30)
[2017-09-01] MEDS ORDERED: HYDROcodone-ACET 10/325MG TAB PO ONE (21:30)
== END 2017-09-01 22:03 | disposition home or self-care (01) ==
LOC: EDBD 15:46 → ER 15:50
DX: R56.9 Unspecified convulsions (principal); I25.10 Atherosclerotic heart disease of native coronary artery without angina pectoris; E11.22 Type 2 diabetes mellitus with diabetic chronic kidney disease; I13.2 Hypertensive heart and chronic kidney disease with heart failure and with stage 5 chronic kidney disease, or end stage renal disease; I50.9 Heart failure, unspecified; N18.6 End stage renal disease; Z99.2 Dependence on renal dialysis; J44.9 Chronic obstructive pulmonary disease, unspecified; I25.2 Old myocardial infarction; F17.210 Nicotine dependence, cigarettes, uncomplicated; Z98.61 Coronary angioplasty status
CPT/HCPCS: 36415; 80053; 80164; 83735; 85025; 93005; 94761; 96365

== ENCOUNTER 2017-10-03 13:35 | Emergency (ER) | payer MEDICARE, MEDICAID ==
[~2017-10-03] VITALS: Ht 180.3 cm; Wt 158.3 kg
[~2017-10-03 13:35] MED LIST changes: -GABA-497 PO; +GABA300C10 PO
[2017-10-03 18:42] LABS: Basophils # (auto) 0 uL; Eosinophils # (auto) 0 uL; White Blood Cell 9.4 10^3/uL (4.4-10.8)
[2017-10-03 18:44] LABS: Basophils % (auto) 0.3 % (0.0-2.0); Eosinophils % (auto) 0.3 % (0.0-7.0); Hematocrit 51.5 % (41.0-53.0); Hemoglobin 17.4 g/dL (13.5-17.5); Lymphocytes # (auto) 2.4 uL; Lymphocytes % (auto) 25.4 % (10.0-50.0); Mean Corpuscular Hemoglobin 33.9 pg (28.0-32.0); Mean Corpuscular Hgb Conc. 33.8 g/dL (32.0-36.0); Mean Corpuscular Volume 100.1 fL (80.0-100.0); Monocytes # (auto) 0.7 uL; Monocytes % (auto) 7.6 % (0.0-12.0); Neutrophils # (auto) 6.2 uL; Neutrophils % (auto) 66.4 % (37.0-80.0); Nucleated Red Blood Cells % 2.9 %; Platelet Count (auto) 258 10^3/uL (140-450); Red Blood Cells 5.15 10^6/uL (4.5-5.90); Red Cell Distribution Width 13.8 % (11.8-14.3)
[2017-10-03 19:00] LABS: Alanine Aminotransferase 22 U/L (16-61); Albumin 3.6 g/dL (3.4-5.0); Anion Gap 6 (5-15); Aspartate Aminotransferase 23 U/L (15-37); BUN/Creatinine Ratio 16.2; Blood Urea Nitrogen 22 mg/dL (7-18); Calcium 8.7 mg/dL (8.5-10.1); Carbon Dioxide 21 mmol/L (21-32); Chloride 114 mmol/L (98-107); GFR African American 70 mL/min; GFR Non-African American 58 mL/min; Glucose 85 mg/dL (74-106); Potassium 3.9 mmol/L (3.5-5.1); Sodium 141 mmol/L (136-145)
[2017-10-03 19:04] LABS: Alkaline Phosphatase 116 U/L (45-117); Bilirubin, Total 1.5 mg/dL (0.2-1.0); Total Protein 7.7 g/dL (6.4-8.2)
[2017-10-03] MEDS ORDERED: ALBUTEROL SULF 2.5 MG/0.5ML(0.5%) NEB SOLN NEB ONE (19:45)
[2017-10-03] MEDS ORDERED: methylPREDNISolone SOD SUCC 125 MG/2 ML VL IM ONE (19:45)
[2017-10-03] MEDS ORDERED: IPRATROPIUM BROM 0.5 MG/2.5ML INH SOL NEB ONE (19:45)
[2017-10-03] MEDS ORDERED: HYDROcodone-ACET 10/325MG TAB PO ONE (19:45)
[2017-10-03 20:18] VITALS: BP 145/82
[2017-10-03] MEDS ORDERED: cefTRIAXone SOD 1,000 MG VL IM ONE (20:45)
== END 2017-10-03 21:55 | disposition home or self-care (01) ==
LOC: ER 13:35
DX: J44.0 Chronic obstructive pulmonary disease with (acute) lower respiratory infection (principal); J20.9 Acute bronchitis, unspecified; F17.210 Nicotine dependence, cigarettes, uncomplicated; I10 Essential (primary) hypertension; Z87.442 Personal history of urinary calculi
CPT/HCPCS: 36415; 71046; 80053; 84484; 85025; 93005; 94640; 96372; 99285; J0696; J2930